=== PATIENT | female | born 1980 | race Hispanic/Latino ===

== ENCOUNTER 2017-05-10 12:25 | Emergency (ER) | payer OTHER ==
[~2017-05-10] VITALS: Ht 167.6 cm; Wt 79.1 kg
[~2017-05-10 12:25] MED LIST: CELEXA10 MG PO; DEPAKOTE500 MG PO; DIAMOX250 MG PO; ESKALITH300 MG NG; LEXAPRO10 MG PO; PRILOSEC20 MG PO
[2017-05-10] MEDS ORDERED: FLEXERIL10 MG PO (13:46)
[2017-05-10] MEDS ORDERED: MOTRIN800 MG PO (13:46)
[2017-05-10] MEDS ORDERED: DEXILANT60 MG PO (14:19)
[2017-05-10] MEDS ORDERED: BUPROPION HCL150 M2 PO (14:19)
[2017-05-10] MEDS ORDERED: MULTIVITAMIN1 EAC2 PO (14:19)
[2017-05-10 14:20] VITALS: BP 111/69
== END 2017-05-10 14:21 | disposition home or self-care (01) ==
LOC: EME 12:25
DX: S46.912A Strain of unspecified muscle, fascia and tendon at shoulder and upper arm level, left arm, initial encounter (principal); V49.40XA Driver injured in collision with unspecified motor vehicles in traffic accident, initial encounter; Y92.410 Unspecified street and highway as the place of occurrence of the external cause; Y99.0 Civilian activity done for income or pay; Z87.891 Personal history of nicotine dependence
CPT/HCPCS: 99281; 99284